=== PATIENT | female | born 1965 | race Caucasian/White ===

== ENCOUNTER 2018-02-14 08:57 | Emergency (ER) | payer BC ==
[2018-02-14] MEDS ORDERED: Metoclopramide 10 MG/2 ML SDV IVPUSH ONE (09:24)
[2018-02-14] MEDS ORDERED: Metoclopramide 10 MG/2 ML SDV ONE (09:26)
[2018-02-14] MEDS ORDERED: LORazepam 2 MG/ML Syringe IVPUSH ONE (09:33)
[2018-02-14] MEDS ORDERED: LORazepam 2 MG/ML Syringe ONE (09:33)
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
[2018-02-14 10:15] LABS: CHLORIDE,CL 92 mmol/L (101-111); SODIUM,NA 130 mmol/L (135-145)
[2018-02-14 10:16] LABS: ACETAMINOPHEN < 10
[2018-02-14] MEDS ORDERED: Sodium Chloride 0.9% with KCl 1,000 ML IV SCH (10:30)
[2018-02-14] MEDS ORDERED: Potassium Chloride 10 MEQ Tab.ER PO ONE (10:43)
--- NOTE | 2018-02-15 07:21 | EKG ---
02/14/2018- HERMAN ASHBY 12-lead EKG shows normal sinus rhythm with heart rate of 75, no significant ST elevation or ST depression noted on this 12-lead EKG. Nonspecific ST-T wave changes noted on lead V6, possible lead misplacement. [facility] /[id number]
== END 2018-02-14 12:00 ==
LOC: DL.ED 08:57
DX: G40.409 Other generalized epilepsy and epileptic syndromes, not intractable, without status epilepticus (principal); E87.6 Hypokalemia; E87.1 Hypo-osmolality and hyponatremia; Z79.899 Other long term (current) drug therapy
CPT/HCPCS: 36415; 70450; 80053; 80305; 81001; 83735; 84443; 85025; 93005; 96365; 96375; 99285; A9270-GY; G0480; J2060; J2765; J3480

== ENCOUNTER 2018-02-17 23:56 | Emergency (ER) | payer BC ==
[2018-02-17] MEDS ORDERED: LORazepam 1 MG Tab PO ONE (23:57)
--- NOTE | 2018-02-18 00:35 | EDM.PDOCBH ---
ED HPI GENERAL MEDICAL PROBLEM - General Chief Complaint: Neurological Problem Stated Complaint: [id number] something cognitively wrong Time Seen by Provider: 02/18/18 00:24 Source of Information: Reports: Patient, Family, Old Records History Limitations: Reports: No Limitations - History of Present Illness INITIAL COMMENTS - FREE TEXT/NARRATIVE: was seen here 3 days ago with altered mentation and seizure. sent to had both Neuro & Psyche eval with Dx of serotonin syndrome. son states varghese was d/c yesterday from since she was back to normal and she wanted to go home. then today she called 9pm and was distraught over needing rabies vac' so he brought her here. 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 pt leaves alone but has Peer39 who also works in the farm with her as a family run business. - Related Data Allergies Allergy/AdvReac Type Severity Reaction Status Date / Time No Known Allergies Allergy Verified 02/14/18 09:41 Home Meds: Home Meds Cyclobenzaprine HCl 1 tab PO TID PRN 02/14/18 [History] DULoxetine HCl [Duloxetine HCl] 1 tab PO DAILY 02/14/18 [History] Hydrocodone/Acetaminophen [Hydrocodon-Acetaminophen 5-325] 1 tab PO ASDIRECTED PRN 02/14/18 [History] Lisinopril/Hydrochlorothiazide [Lisinopril-HCTZ 10-12.5 MG] 1 tab PO DAILY 02/14 [History] Potassium Chloride 1 tab PO ASDIRECTED 02/14/18 [History] Zolpidem Tartrate 1 tab PO BEDTIME PRN 02/14/18 [History] Past Medical History HEENT History: Reports: None Cardiovascular History: Reports: Hypertension Respiratory History: Reports: None Gastrointestinal History: Reports: None Genitourinary History: Reports: None Musculoskeletal History: Reports: Arthritis, Osteoarthritis, Other (See Below) Other Musculoskeletal History: arthritis to knee. Receives cortisone injections to knees. Neurological History: Reports: None Psychiatric History: Reports: Addiction, Anxiety, Depression, Suicidal Ideation Endocrine/Metabolic History: Reports: Other (See Below) Other Endocrine/Metabolic History: pre diabetes Hematologic History: Reports: None Immunologic History: Reports: None Oncologic (Cancer) History: Reports: None Dermatologic History: Reports: None - Past Surgical History HEENT Surgical History: Reports: None Cardiovascular Surgical History: Reports: None GI Surgical History: Reports: None Female Surgical History: Reports: None Neurological Surgical History: Reports: None Musculoskeletal Surgical History: Reports: None ED ROS GENERAL - Review of Systems Review Of Systems: ROS reveals no pertinent complaints other than HPI. ED EXAM, BEHAVIORAL HEALTH - Physical Exam Exam: See Below Exam Limited By: No Limitations General Appearance: Alert, WD/WN, No Apparent Distress, Anxious, Other ( somewhat agitated) Eye Exam: Bilateral Eye: PERRL (pupils ER @ 4mm) Ears: Hearing Grossly Normal Throat/Mouth: Normal Voice, No Airway Compromise Head: Atraumatic Neck: Non-Tender, Full Range of Motion Respiratory/Chest: No Respiratory Distress Cardiovascular: Regular Rate, Rhythm GI/Abdominal: Soft, Non-Tender Neurological: Alert, Normal Cognition, Normal Gait, Oriented x 3 Psychiatric: Agitated, Other (distracted) Skin Exam: Warm, Dry, Normal color COURSE, BEHAVIORAL HEALTH COMP - Course Vital Signs: Last Vital Signs Temp 36.1 C 02/18/18 00:00 Pulse 97 02/18/18 00:00 Resp 19 02/18/18 00:00 BP 159/68 H 02/18/18 00:00 Pulse Ox 100 02/18/18 00:00 Orders, Labs, Meds: Laboratory Tests 02/18/18 02/18/18 02/18/18 Range/Units 00:24 00:40 00:40 WBC 7.5 (5.0-10.0) 10^3/uL RBC 4.11 L (4.2-5.4) 10^6/uL Hgb 13.4 (12.0-16.0) g/dL Hct 38.4 (37.0-47.0) % MCV 93.4 (80-100) fL MCH 32.6 (27.0-34.0) pg MCHC 34.9 (33.0-35.0) g/dL Plt Count 362 (150-450) 10^3/uL Neut % (Auto) 56.9 (42.2-75.2) % Lymph % (Auto) 34.5 (20.5-50.1) % [place] % (Auto) 7.6 (2-8) % Eos % (Auto) 0.7 L (1.0-3.0) % Baso % (Auto) 0.3 (0.0-1.0) % Sodium 138 (135-145) mmol/L Potassium 3.1 L (3.6-5.0) mmol/L Chloride 104 D (101-111) mmol/L Carbon Dioxide 24.0 (21.0-31.0) mmol/L Anion Gap 13.1 BUN 15 (7-18) mg/dL Creatinine 0.6 (0.6-1.3) mg/dL Est Cr Clr Drug Dosing 84.78 mL/min Estimated GFR (MDRD) > 60 BUN/Creatinine Ratio 25.00 Glucose 119 H (74-105) mg/dL Calcium 9.9 (8.4-10.2) mg/dl Total Bilirubin 0.5 (0.2-1.0) mg/dL AST 20 (10-42) IU/L ALT 44 (10-60) IU/L Alkaline Phosphatase 93 (42-121) IU/L Total Protein 7.6 (6.7-8.2) g/dl Albumin 4.6 (3.2-5.5) g/dl Globulin 3.0 Albumin/Globulin Ratio 1.53 Urine Opiates Screen Negative (NEGATIVE) Ur Oxycodone Screen Negative (NEGATIVE) Urine Methadone Screen Negative (NEGATIVE) Ur Barbiturates Screen Negative (NEGATIVE) U Tricyclic Antidepress Negative (NEGATIVE) Ur Phencyclidine Scrn Negative (NEGATIVE) Ur Amphetamine Screen Negative (NEGATIVE) U Methamphetamines Scrn Negative (NEGATIVE) Urine MDMA Screen Negative (NEGATIVE) U Benzodiazepines Scrn Negative (NEGATIVE) Urine Cocaine Screen Negative (NEGATIVE) U Marijuana (THC) Screen Negative (NEGATIVE) Ethyl Alcohol < 5 mg/dL Medications Discontinued Medications Generic Name Dose Route Start Last Admin Trade Name Freq PRN Reason Stop Dose Admin Lorazepam 1 mg 02/18/18 00:59 02/18/18 01:06 Ativan IM 02/18/18 01:00 1 mg ONETIME ONE Administration Lorazepam Confirm 02/18/18 01:35 02/18/18 02:14 Ativan Administered 02/18/18 01:36 Not Given Dose 1 mg .ROUTE .STK-MED ONE Lorazepam 1 mg 02/17/18 23:57 Ativan PO 02/17/18 23:58 .STK-MED ONE Re-Assessment/Re-Exam: re-exam; s/p IM ativan 1mg pt calmed down and son states pt is more her normal self pt states she feels much better now and want to go home. discussed with pt & son re' ativan and vistaril to help control her mood and follow up with mental health Monday Departure - Departure Time of Disposition: 01:45 Disposition: Home, Self-Care 01 Condition: Good Clinical Impression: Anxiety, Panic disorder - Discharge Information Instructions: Panic Attack, [id number] Forms: ED Department Discharge Additional Instructions: 1) follow up with Mental Health at [facility] Monday 2) recheck if there is any change or concern rx given; vistaril 25mg bid for anxiety x 12 ativan 1mg hs prn sleep x 4
[2018-02-18] MEDS ORDERED: LORazepam 2 MG/ML Syringe IM ONE (00:59)
[2018-02-18 01:12] LABS: CHLORIDE,CL 104 mmol/L (101-111); SODIUM,NA 138 mmol/L (135-145)
[2018-02-18] MEDS ORDERED: LORazepam 1 MG Tab ONE (01:35)
== END 2018-02-18 01:43 | disposition home or self-care (01) ==
LOC: DL.ED 23:56
DX: F41.0 Panic disorder [episodic paroxysmal anxiety] (principal); I10 Essential (primary) hypertension; Z79.899 Other long term (current) drug therapy
CPT/HCPCS: 36415; 80053; 80305; 85025; 96372; 99284; A9270; G0480; J2060